=== PATIENT | female | born 1930 | race Caucasian/White ===

== ENCOUNTER 2021-06-06 10:18 | Inpatient (IN) ==
--- NOTE | 2021-06-06 11:11 | Emergency Department Note ---
Impression & Plan Ambulatory dysfunction, Fall, Elevated CK, Dementia ADMIT ED Provider Note HPI: The patient is an 89-year-old female with history of dementia, presents the emergency department after she was found down on the bathroom floor earlier this morning by family. Patient lives with her son, reportedly was in bed around 5 AM and then found on the ground around 8:30 AM. Patient has dementia and is unable to provide me with any useful history on arrival. She does ambulate her extremities spontaneously. She is hemodynamically stable on arrival without any obvious external evidence of trauma on my initial assessment. ROS: -General: Found down *10 point review systems was conducted and is otherwise negative unless stated above *Outpatient medications and allergy history reviewed PE: General: Frail appearing, disheveled appearing, no acute distress, alert HEENT: Normocephalic, atraumatic Eyes: Extraocular eye movement is intact, no scleral erythema Pulmonary: Clear to auscultation bilaterally, no wheezing Cardio: Regular rate and rhythm GI: Abdomen is soft, nontender : No suprapubic tenderness MSK: No evidence of trauma or malformation of the extremities, no edema, patient does ambulate extremities spontaneously Skin: No evidence of rash Neuro: Alert, no focal deficits Psychiatric: Aggressive, confused at baseline with dementia Medical Decision Making: Patient presented to the emergency department after being found down on the ground, shortly after arrival IV was established, lab work obtained, CT imaging of the head does not show any evidence of intracranial bleeding, chest x-ray does not show any obvious evidence of fracture or pneumothorax. X-ray imaging of the hips was questionable for a possible pelvic ring fracture, CT imaging of the hips/pelvis was obtained that does not show any evidence of acute fracture, does show evidence of previous fractures. CK level is mildly elevated, no critical electrolyte abnormalities are noted. Patient was ordered a bolus of IV fluid. The patient is frail-appearing, she is 89 years old, she has dementia, the patient's daughter who is the POA tells me that things have not been going well at home recently as she has been having increasing ambulatory dysfunction and weakness. She no longer appears to be stable for management at home where she does live with her son who is currently not here at the bedside. Patient's daughter states that she believes at this point the patient needs placed in a nursing facility which I am in agreement with. I discussed with case management, secondary to the patient's insurance product it would be difficult to place her in a nursing facility directly from the ED, therefore case was discussed with the hospitalist service for [facility] and the patient was admitted in stable condition for further care and arrangement of placement. Diagnosis: 1. Dementia 2. Ambulatory dysfunction 3. Fall 4. Elevated CK level Disposition: Admission Tavo Jones DO Emergency Medicine Past Med/Surg History Social History Smoking Status: Unknown if ever smoked Allergies Allergies Allergy/AdvReac Type Severity Reaction Status Date / Time No Known Allergies Allergy Unknown Verified 06/06/21 13:39 Home Meds Home Medications Medication Instructions Recorded Confirmed aspirin 325 mg tablet 325 mg PO DAILY 06/06/21 06/06/21 calcium carbonate 500 mg-vitamin 1 tab PO DAILY 06/06/21 06/06/21 D3 15 mcg (600 unit) tablet (Os-Soto 500 + D3) donepezil 23 mg tablet 23 mg PO HS 06/06/21 06/06/21 dorzolamide 22.3 mg-timolol 6.8 1 drp OPB HS 06/06/21 06/06/21 mg/mL eye drops hydrochlorothiazide 12.5 mg tablet 12.5 mg PO UD 06/06/21 06/06/21 ibandronate 150 mg tablet 150 mg PO HS 06/06/21 06/06/21 lisinopril 10 mg tablet 10 mg PO DAILY 06/06/21 06/06/21 memantine 10 mg tablet 10 mg PO DAILY 06/06/21 06/06/21 simvastatin 20 mg tablet 20 mg PO DAILY 06/06/21 06/06/21 Results & Data (ED) Vital Signs Vital Signs - 24 hr 06/06/21 10:31 06/06/21 10:57 06/06/21 12:03 Temperature 37.0 C Temperature Source Oral Oral Pulse Rate 71 Pulse Rate [Right Finger] Respiratory Rate 20 Respiratory Effort / Characteristics Non-Labored Respiratory Depth Normal Respiratory Pattern Blood Pressure 142/62 H Blood Pressure [Left Arm] Blood Pressure Mean 88 Blood Pressure Mean [Left Arm] Blood Pressure Position Sitting Blood Pressure Position [Left Arm] Pulse Oximetry 96 Oxygen Delivery Method Room Air Room Air Sepsis Recent Fever Within 48 Hours No Sepsis New/Unexplained Change in Mental Status No Sepsis Action Taken by Nursing No Action Required 06/06/21 13:01 06/06/21 15:00 Temperature Temperature Source Pulse Rate Pulse Rate [Right Finger] 71 74 Respiratory Rate 18 20 Respiratory Effort / Characteristics Non-Labored Non-Labored Respiratory Depth Normal Normal Respiratory Pattern Regular Regular Blood Pressure Blood Pressure [Left Arm] 109/50 L 134/65 Blood Pressure Mean Blood Pressure Mean [Left Arm] 69 88 Blood Pressure Position Blood Pressure Position [Left Arm] Sitting Pulse Oximetry 97 96 Oxygen Delivery Method Room Air Room Air Sepsis Recent Fever Within 48 Hours Sepsis New/Unexplained Change in Mental Status Sepsis Action Taken by Nursing Laboratory Data Result diagrams: 06/06/21 12:13 06/06/21 12:13 Lab Results 06/06/21 06/06/21 06/06/21 Range/Units 12:13 12:13 12:13 WBC 9.44 (4.8-10.8) K/uL RBC 4.77 (4.2-5.4) M/uL Hgb 14.2 (12.0-16.0) g/dL Hct 42.5 (37-47) % MCV 89.1 (80-100) fL MCH 29.8 (25-34) pg MCHC 33.4 (32-36) g/dL RDW Std Deviation 47.1 H (36.4-46.3) fL RDW Coeff of Miguelito 14.5 (11.5-14.5) % Plt Count 220 (130-400) K/uL MPV 11.5 H (7.4-10.4) fL Immature Gran % (Auto) 0.2 % Neut % (Auto) 83.7 % Lymph % (Auto) 10.0 % [place] % (Auto) 5.5 % Eos % (Auto) 0.5 % Baso % (Auto) 0.1 % Neut # (Auto) 7.90 H (1.4-6.5) K/uL Lymph # (Auto) 0.94 L (1.2-3.4) K/uL [place] # (Auto) 0.52 (0.11-0.59) K/uL Eos # (Auto) 0.05 (0-0.5) K/uL Baso # (Auto) 0.01 (0-0.2) K/uL Immature Gran # (Auto) 0.02 (0.00-0.02) K/uL PT 10.8 (9.0-12.0) Seconds INR 1.0 (0.9-1.1) Sodium 141 (136-145) mmol/L Potassium 3.9 (3.5-5.1) mmol/L Chloride 110 H (98-107) mmol/L Carbon Dioxide 26 (21-32) mmol/L Anion Gap 5 (3-11) BUN 25 H (6-23) mg/dl Creatinine 0.99 (0.6-1.2) mg/dl Est Cr Clr Drug Dosing Not Reportable Est GFR ( Amer) 59.0 ml/min Est GFR (Non-Af Amer) 50.9 ml/min BUN/Creatinine Ratio 25.3 H (10-20) Glucose 95 (70-99(Fasting)) mg/dl Calcium 9.3 (8.5-10.1) mg/dl Total Bilirubin 0.6 (0.2-1.0) mg/dl AST 14 (13-39) U/L ALT 8 (7-52) U/L Alkaline Phosphatase 110 H (34-104) U/L Total Creatine Kinase 265 H (26-192) U/L Total Protein 6.1 (6.0-8.3) gm/dl Albumin 3.6 (3.4-5.0) gm/dl Globulin 2.5 (2.5-4.0) gm/dl Albumin/Globulin Ratio 1.4 (0.9-2) Administered Medications Discontinued Medications Sodium Chloride (Nss) 500 mls @ 999 mls/hr IV .Q31M MARIANNE Stop: 06/06/21 11:45 Last Infusion: 06/06/21 12:53 Dose: 0 mls/hr Documented by: [id number] Admin: 06/06/21 11:35 Dose: 999 mls/hr Documented by: [id number] Imaging Data Radiologist's Impression: Head CT 06/06/21 11:09 CT head/brain wo con CLINICAL HISTORY: Trauma/fall Technique: Contiguous axial CT images of the head were acquired from the base of the skull to the vertex without intravenous contrast administration. Images were viewed in brain, subdural and bone windows. Automated dose lowering techniques and/or adjustment according to patient size were utilized for this exam. Comparison: None available at the time of this dictation. Findings: Exam is limited by patient motion and positioning. The ventricles, basal cisterns, and cerebral sulci are normal. There is no acute intracranial hemorrhage or evidence of acute territorial infarction. Neither mass effect, shift of the midline structures, nor abnormal extra-axial fluid collections are shown. Imaged portions of the paranasal sinuses and mastoid air cells are clear. The orbits appear normal. There are no acute fractures of the calvaria or scalp swelling. Impression: No acute intracranial hemorrhage, skull fractures, or scalp swelling within the limitations of this exam. ACT 112: Negative or not required by law. Electronically signed by: Andrea Luis M.D. 06/06/2021 2:58 PM Chest X-Ray 06/06/21 11:10 SINGLE VIEW CHEST CLINICAL HISTORY: Fall. FINDINGS: An AP, portable, upright chest radiograph is obtained. No prior studies are available for comparison at the time of dictation. The examination is severely degraded by portable technique and patient rotation. The cardiomediastinal silhouette is not well assessed due to patient rotation. Nonspecific interstitial thickening is likely chronic. Bibasilar opacities likely represent scarring/atelectasis. No airspace consolidation or large pleural effusion is clearly identified. No pneumothorax is seen. The skeletal structures are osteopenic. The bony thorax is grossly intact. Degenerative change and scoliosis is noted in the thoracic spine. Arthritic change is seen in the shoulders. IMPRESSION: No acute abnormality is identified noting a significantly degraded examination. This degrades diagnostic utility, and a repeat PA and lateral examination is recommended when the patient is clinically able. ACT 112: Negative or not required by law. Electronically signed by: Stefano Rubio M.D. 06/06/2021 1:46 PM Hip/Pelvis X-Ray 06/06/21 11:10 XR hip MORGAN 2v w pelvis CLINICAL HISTORY: fall COMPARISON STUDY: Pelvis radiograph January 25, 2012. FINDINGS: No acute proximal femoral fracture is present. Old healed left pubic ring fractures are noted. There is lucency with subtle cortical irregularity of the right inferior pubic ramus. Sacroiliac joints are intact. Symphysis pubis is intact. IMPRESSION: 1. No acute proximal femoral fracture identified. 2. Lucency with subtle cortical irregularity of the right inferior pubic ramus. A mildly displaced fracture cannot be excluded. 3. Old, healed left pubic ring fractures. ACT 112: Negative or not required by law. Electronically signed by: Gee Vincent M.D. 06/06/2021 1:[address] 06/06/21 14:04 CT SCAN OF THE PELVIS WITHOUT IV CONTRAST CLINICAL HISTORY: Fall. Low back pain. COMPARISON STUDY: Radiographs of the hips and pelvis dated 06/06/2021. A dose lowering technique was utilized adhering to the principles of ALARA. TECHNIQUE: CT scan of the pelvis is performed from the pelvic inlet to the proximal femora. Images are reviewed in the axial, sagittal, and coronal planes. IV contrast was not administered for this examination. FINDINGS: The skeletal structures are osteopenic. There is no evidence of acute fracture involving the hips or bony pelvis. There are chronic/healed left pubic ring fractures. Degenerative change and joint space narrowing is seen in the hips. Lumbosacral spondylosis is partially visualized. Sclerotic change is noted in the sacroiliac joints and pubic symphysis. No lytic or blastic lesion is seen. There is generalized atrophy of the regional musculature. No hematoma is identified. The bladder is distended. The uterus is atrophic versus surgically absent. There is advanced diverticulosis of the visualized colon without CT evidence of acute diverticulitis. Trace nonspecific free fluid is seen in the cul-de-sac. No pelvic sidewall or inguinal adenopathy is identified. Minimal soft tissue contusion is suggested posterior to the right greater trochanter. IMPRESSION: 1. No acute fracture is identified. 2. There are healed left pubic ring fractures. 3. Marked bladder distention. 4. Trace free fluid in the pelvis is a nonspecific but abnormal finding. 5. Advanced diverticulosis of the imaged colon without CT evidence of acute diverticulitis. ACT 112: Negative or not required by law. Dictated: 06/06/2021 2:53 PM Transcribed: 06/06/2021 3:05 PM Janey [id number] [email or web address] Electronically signed by: Stefano Rubio M.D. 06/06/2021 3:07 PM Discharge Plan Visit Data Chief Complaint: Fall ED Provider: Tavo Jones Discharge Problem: Ambulatory dysfunction, Fall, Elevated CK, Dementia Forms Stand Alone Forms: My [facility] [address] Prescriptions Prescriptions: No Action aspirin 325 mg Tablet 325 mg PO DAILY RF: 0 simvastatin 20 mg tablet 20 mg PO DAILY RF: 0 lisinopril 10 mg tablet 10 mg PO DAILY RF: 0 dorzolamide-timolol 22.3-6.8 mg/mL drops 1 drp OPB HS RF: 0 memantine 10 mg tablet 10 mg PO DAILY RF: 0 ibandronate 150 mg tablet 150 mg PO HS RF: 0 hydrochlorothiazide 12.5 mg tablet 12.5 mg PO UD RF: 0 donepezil 23 mg tablet 23 mg PO HS RF: 0 calcium carbonate-vitamin D3 [Os-Soto 500 + D3] 500 mg-15 mcg (600 unit) Tablet 1 tab PO DAILY RF: 0 Referrals Referrals: Lizeth Bains [Primary Care Provider] - Discharge Problem: Fall Qualifiers: Encounter type: initial encounter Qualified Code(s): W19.XXXA - Unspecified fall, initial encounter Dementia Qualifiers: Dementia type: unspecified type Dementia behavioral disturbance: without behavioral disturbance Qualified Code(s): F03.90 - Unspecified dementia without behavioral disturbance
[2021-06-06] MEDS ORDERED: SODIUM CHLORIDE 0.9% 500 ML IV SCH (11:15)
[2021-06-06 12:47] LABS: Basophils # (auto) 0.01 K/uL (0-0.2); Basophils % (auto) 0.1 %; Eosinophils # (auto) 0.05 K/uL (0-0.5); Eosinophils % (auto) 0.5 %; Hematocrit (blood only) 42.5 % (37-47); Hemoglobin 14.2 g/dL (12.0-16.0); Immature Granulocytes # (auto) 0.02 K/uL (0.00-0.02); Immature Granulocytes % (auto) 0.2 %; Lymphocytes # (auto) 0.94 K/uL (1.2-3.4); Mean Corpuscular Hemoglobin 29.8 pg (25-34); Mean Corpuscular Hgb Conc 33.4 g/dL (32-36); Mean Corpuscular Volume 89.1 fL (80-100); Mean Platelet Volume 11.5 fL (7.4-10.4); Monocytes # (auto) 0.52 K/uL (0.11-0.59); Monocytes % (auto) 5.5 %; Neutrophils % (auto) 83.7 %; Platelet Count 220 K/uL (130-400); RDW Coefficient of Variation 14.5 % (11.5-14.5); RDW Standard Deviation 47.1 fL (36.4-46.3); Red Blood Count 4.77 M/uL (4.2-5.4); White Blood Count 9.44 K/uL (4.8-10.8)
[2021-06-06 12:58] LABS: Prothrombin Time 10.8 Seconds (9.0-12.0)
[2021-06-06 13:21] LABS: Alanine Aminotransferase 8 U/L (7-52); Albumin Globulin Ratio 1.4 (0.9-2); Albumin Level 3.6 gm/dl (3.4-5.0); Alkaline Phosphatase 110 U/L (34-104); Anion Gap 5 (3-11); Aspartate Aminotransferase 14 U/L (13-39); BUN Creatinine Ratio 25.3 (10-20); Bilirubin,Total 0.6 mg/dl (0.2-1.0); Blood Urea Nitrogen 25 mg/dl (6-23); Calcium 9.3 mg/dl (8.5-10.1); Carbon Dioxide 26 mmol/L (21-32); Chloride 110 mmol/L (98-107); Creatine Kinase 265 U/L (26-192); Est GFR (Non-African American) 50.9 ml/min; Globulin 2.5 gm/dl (2.5-4.0); Glucose 95 mg/dl (70-99(Fasting)); Potassium 3.9 mmol/L (3.5-5.1); Sodium 141 mmol/L (136-145); Total Protein 6.1 gm/dl (6.0-8.3)
--- NOTE | 2021-06-06 13:48 | XRay Report ---
SINGLE VIEW CHEST CLINICAL HISTORY: Fall. FINDINGS: An AP, portable, upright chest radiograph is obtained. No prior studies are available for c omparison at the time of dictation. The examination is severely degraded by portable technique and pa tient rotation. The cardiomediastinal silhouette is not well assessed due to patient rotation. Nonsp ecific interstitial thickening is likely chronic. Bibasilar opacities likely represent scarring/atele ctasis. No airspace consolidation or large pleural effusion is clearly identified. No pneumothorax is seen. The skeletal structures are osteopenic. The bony thorax is grossly intact. Degenerative change and scoliosis is noted in the thoracic spine. Arthritic change is seen in the shoulders. IMPRESSION: No acute abnormality is identified noting a significantly degraded examination. This degr ades diagnostic utility, and a repeat PA and lateral examination is recommended when the patient is c linically able. ACT 112: Negative or not required by law. Electronically signed by: Stefano Rubio M.D. 06/06/2021 1:46 PM
--- NOTE | 2021-06-06 13:57 | XRay Report ---
XR hip MORGAN 2v w pelvis CLINICAL HISTORY: fall COMPARISON STUDY: Pelvis radiograph January 25, 2012. FINDINGS: No acute proximal femoral fracture is present. Old healed left pubic ring fractures are not ed. There is lucency with subtle cortical irregularity of the right inferior pubic ramus. Sacroiliac joints are intact. Symphysis pubis is intact. IMPRESSION: 1. No acute proximal femoral fracture identified. 2. Lucency with subtle cortical irregularity of the right inferior pubic ramus. A mildly displaced fr acture cannot be excluded. 3. Old, healed left pubic ring fractures. ACT 112: Negative or not required by law. Electronically signed by: Gee Vincent M.D. 06/06/2021 1:56 PM
--- NOTE | 2021-06-06 14:59 | CT Scan Report ---
CT head/brain wo con CLINICAL HISTORY: Trauma/fall Technique: Contiguous axial CT images of the head were acquired from the base of the skull to the manda brent without intravenous contrast administration. Images were viewed in brain, subdural and bone windo ws. Automated dose lowering techniques and/or adjustment according to patient size were utilized for this exam. Comparison: None available at the time of this dictation. Findings: Exam is limited by patient motion and positioning. The ventricles, basal cisterns, and cerebral sulci are normal. There is no acute intracranial hemorrhage or evidence of acute territorial infarction. N either mass effect, shift of the midline structures, nor abnormal extra-axial fluid collections are s hown. Imaged portions of the paranasal sinuses and mastoid air cells are clear. The orbits appear normal. There are no acute fractures of the calvaria or scalp swelling. Impression: No acute intracranial hemorrhage, skull fractures, or scalp swelling within the limitations of this e xam. ACT 112: Negative or not required by law. Electronically signed by: Andrea Luis M.D. 06/06/2021 2:58 PM
--- NOTE | 2021-06-06 15:09 | CT Scan Report ---
CT SCAN OF THE PELVIS WITHOUT IV CONTRAST CLINICAL HISTORY: Fall. Low back pain. COMPARISON STUDY: Radiographs of the hips and pelvis dated 06/06/2021. A dose lowering technique was ut ilized adhering to the principles of ALARA. TECHNIQUE: CT scan of the pelvis is performed from the pelvic inlet to the proximal femora. Images ar e reviewed in the axial, sagittal, and coronal planes. IV contrast was not administered for this exam ination. FINDINGS: The skeletal structures are osteopenic. There is no evidence of acute fracture involving th e hips or bony pelvis. There are chronic/healed left pubic ring fractures. Degenerative change and deidra int space narrowing is seen in the hips. Lumbosacral spondylosis is partially visualized. Sclerotic c hange is noted in the sacroiliac joints and pubic symphysis. No lytic or blastic lesion is seen. Ther e is generalized atrophy of the regional musculature. No hematoma is identified. The bladder is diste nded. The uterus is atrophic versus surgically absent. There is advanced diverticulosis of the visual ized colon without CT evidence of acute diverticulitis. Trace nonspecific free fluid is seen in the c ul-de-sac. No pelvic sidewall or inguinal adenopathy is identified. Minimal soft tissue contusion is suggested posterior to the right greater trochanter. IMPRESSION: 1. No acute fracture is identified. 2. There are healed left pubic ring fractures. 3. Marked bladder distention. 4. Trace free fluid in the pelvis is a nonspecific but abnormal finding. 5. Advanced diverticulosis of the imaged colon without CT evidence of acute diverticulitis. ACT 112: Negative or not required by law. Dictated: 06/06/2021 2:53 PM Transcribed: 06/06/2021 3:05 PM Janey [id number] [email or web address] Electronically signed by: Stefano Rubio M.D. 06/06/2021 3:07 PM
--- NOTE | 2021-06-06 16:54 | History & Physical Report ---
Date of Service June 06, 2021 Assessment & Plan (1) Fall: (2) Ambulatory dysfunction: (3) Dementia: Plan: Admit to [facility] telemetry Patient presenting from home after an unwitnessed fall In the ED, head CT negative for acute findings, pelvis x-ray initially question possible pelvic fracture however CT scan will read out UA pending Given unwitnessed fall, check troponin and EKG PT/OT Case management consulted, patient likely will need placement. Daughter reque luke Paredes. (4) Elevated CK: Plan: Mild, total CK 265 Continue gentle IVF hydration Follow-up CK level in the morning (5) HTN (hypertension): Plan: Continue lisinopril, hold HCTZ while receiving IVF (6) DVT prophylaxis: Plan: SQ heparin History of Present Illness Chief Complaint: Fall Primary Care Provider: Lizeth Bains 89-year-old female with PMH HTN, dementia, osteoporosis, no problems to below who presents to the ED after an unwitnessed fall. Due to patient's advanced dementia, history is unobtainable from her. Patient's daughter is the bedside who provides some history. Daughter states that patient lives with her brother (patient's son). He checks in on her frequently throughout the night, when he last checked on her around 5 AM, patient remained in bed. Then around 8 AM, patient was found down in the bathroom floor. Patient cannot provide any history regarding this fall. Patient was brought to the ED for further evaluation. Patient's daughter notes a gradual decline in her mother's confusion over the past year or so. She feels it may have been worse over the past week. No other symptoms reported. In the ED, pelvis x-ray questioned a pelvic fracture however pelvis CT ruled out. Head CT and CXR negative for acute findings. Patient is hemodynamically stable. Labs show a mildly elevated total CK at 265, otherwise unremarkable. UA still pending. Patient received IVF. All ergies Allergy/AdvReac Type Severity Reaction Status Date / Time No Known Allergies Allergy Unknown Verified 06/06/21 13:39 Home Medications Medication Instructions Recorded Confirmed Type aspirin 325 mg tablet 325 mg PO DAILY 06/06/21 06/06/21 History calcium carbonate 500 mg-vitamin 1 tab PO DAILY 06/06/21 06/06/21 History D3 15 mcg (600 unit) tablet ([place] 500 + D3) donepezil 23 mg tablet 23 mg PO HS 06/06/21 06/06/21 History dorzolamide 22.3 mg-timolol 6.8 1 drp OPB HS 06/06/21 06/06/21 History mg/mL eye drops hydrochlorothiazide 12.5 mg tablet 12.5 mg PO UD 06/06/21 06/06/21 History ibandronate 150 mg tablet 150 mg PO HS 06/06/21 06/06/21 History lisinopril 10 mg tablet 10 mg PO DAILY 06/06/21 06/06/21 History memantine 10 mg tablet 10 mg PO DAILY 06/06/21 06/06/21 History simvastatin 20 mg tablet 20 mg PO DAILY 06/06/21 06/06/21 History Past Med/Surg History Medical History Dementia Dyslipidemia HTN (hypertension) Osteoporosis Surgical History History of partial hysterectomy Family History Other Family history unobtainable Social History (Updated 06/06/21 @ 16:50 by JUAN Camejo) Smoking Status: Never smoker Hx Alcohol Use: No Review of Systems Review of Systems: Unobtainable due to cognitive status Physical Exam Constitutional: WD/WN, vitals as above + ill appearing (Chronically); no acute distress Eyes: PERRL, conjunctivae normal, anicteric sclerae ENMT: Ears: no external ear abnormality Nose: no external nose abnormality Mouth: + poor dentition Respiratory: normal respiratory effort, lungs clear to auscultation Cardiovascular: Rate/Rhythm: regular rate and regular rhythm Vessels: normal peripheral pulses Extremities: no edema Gastrointestinal (Abdomen): normal bowel sounds, soft, nontender, no hepatosplenomegaly Musculoskeletal: Extremities: no cyanosis and no clubbing Difficult to assess strength as patient has difficulty following commands Skin: no rashes, warm and dry Neurologic: PERRL, EOMI, accommodation nl, no face palsy, no dysarthria Psychiatric: Orientation: alert and oriented to person; + not oriented to place and + not oriented to time Results & Data Results & Data ([place]) Vital Signs (Past 12 Hours) Vital Signs Temp Pulse Pulse Resp BP BP Pulse Ox 06/06/21 15:00 74 20 134/65 96 06/06/21 13:01 71 18 109/50 L 97 06/06/21 10:31 37.0 C 71 20 142/62 H 96 Laboratory Results Short CBC 06/06/21 Range/Units 12:13 WBC 9.44 (4.8-10.8) K/uL Hgb 14.2 (12.0-16.0) g/dL Hct 42.5 (37-47) % Plt Count 220 (130-400) K/uL BMP 06/06/21 12:13 Sodium 141 Potassium 3.9 Chloride 110 H Carbon Dioxide 26 BUN 25 H Creatinine 0.99 Glucose 95 Calcium 9.3 Cardiac Enzymes 06/06/21 Range/Units 12:13 Total Creatine Kinase 265 H (26-192) U/L Liver Function 06/06/21 Range/Units 12:13 Total Bilirubin 0.6 (0.2-1.0) mg/dl AST 14 (13-39) U/L ALT 8 (7-52) U/L Alkaline Phosphatase 110 H (34-104) U/L Albumin 3.6 (3.4-5.0) gm/dl Diagnostic Findings Head CT 06/06/21 11:09 CT head/brain wo con CLINICAL HISTORY: Trauma/fall Technique: Contiguous axial CT images of the head were acquired from the base of the skull to the vertex without intravenous contrast administration. Images were viewed in brain, subdural and bone windows. Automated dose lowering techniques and/or adjustment according to patient size were utilized for this exam. Comparison: None available at the time of this dictation. Findings: Exam is limited by patient motion and positioning. The ventricles, basal cisterns, and cerebral sulci are normal. There is no acute intracranial hemorrhage or evidence of acute territorial infarction. Neither mass effect, shift of the midline structures, nor abnormal extra-axial fluid collections are shown. Imaged portions of the paranasal sinuses and mastoid air cells are clear. The orbits appear normal. There are no acute fractures of the calvaria or scalp swelling. Impression: No acute intracranial hemorrhage, skull fractures, or scalp swelling within the limitations of this exam. ACT 112: Negative or not required by law. Electronically signed by: Andrea Luis M.D. 06/06/2021 2:58 PM Chest X-Ray 06/06/21 11:10 SINGLE VIEW CHEST CLINICAL HISTORY: Fall. FINDINGS: An AP, portable, upright chest radiograph is obtained. No prior studies are available for comparison at the time of dictation. The examination is severely degraded by portable technique and patient rotation. The cardiomediastinal silhouette is not well assessed due to patient rotation. Nonspecific interstitial thickening is likely chronic. Bibasilar opacities likely represent scarring/atelectasis. No airspace consolidation or large pleural effusion is clearly identified. No pneumothorax is seen. The skeletal structures are osteopenic. The bony thorax is grossly intact. Degenerative change and scoliosis is noted in the thoracic spine. Arthritic change is seen in the shoulders. IMPRESSION: No acute abnormality is identified noting a significantly degraded examination. This degrades diagnostic utility, and a repeat PA and lateral examination is recommended when the patient is clinically able. ACT 112: Negative or not required by law. Electronically signed by: Stefano Rubio M.D. 06/06/2021 1:46 PM Hip/Pelvis X-Ray 06/06/21 11:10 XR hip MORGAN 2v w pelvis CLINICAL HISTORY: fall COMPARISON STUDY: Pelvis radiograph January 25, 2012. FINDINGS: No acute proximal femoral fracture is present. Old healed left pubic ring fractures are noted. There is lucency with subtle cortical irregularity of the right inferior pubic ramus. Sacroiliac joints are intact. Symphysis pubis is intact. IMPRESSION: 1. No acute proximal femoral fracture identified. 2. Lucency with subtle cortical irregularity of the right inferior pubic ramus. A mildly displaced fracture cannot be excluded. 3. Old, healed left pubic ring fractures. ACT 112: Negative or not required by law. Electronically signed by: Gee Vincent M.D. 06/06/2021 1:[address] 06/06/21 14:04 CT SCAN OF THE PELVIS WITHOUT IV CONTRAST CLINICAL HISTORY: Fall. Low back pain. COMPARISON STUDY: Radiographs of the hips and pelvis dated 06/06/2021. A dose lowering technique was utilized adhering to the principles of ALARA. TECHNIQUE: CT scan of the pelvis is performed from the pelvic inlet to the proximal femora. Images are reviewed in the axial, sagittal, and coronal planes. IV contrast was not administered for this examination. FINDINGS: The skeletal structures are osteopenic. There is no evidence of acute fracture involving the hips or bony pelvis. There are chronic/healed left pubic ring fractures. Degenerative change and joint space narrowing is seen in the hips. Lumbosacral spondylosis is partially visualized. Sclerotic change is noted in the sacroiliac joints and pubic symphysis. No lytic or blastic lesion is seen. There is generalized atrophy of the regional musculature. No hematoma is identified. The bladder is distended. The uterus is atrophic versus surgically absent. There is advanced diverticulosis of the visualized colon without CT evidence of acute diverticulitis. Trace nonspecific free fluid is seen in the cul-de-sac. No pelvic sidewall or inguinal adenopathy is identified. Minimal soft tissue contusion is suggested posterior to the right greater trochanter. IMPRESSION: 1. No acute fracture is identified. 2. There are healed left pubic ring fractures. 3. Marked bladder distention. 4. Trace free fluid in the pelvis is a nonspecific but abnormal finding. 5. Advanced diverticulosis of the imaged colon without CT evidence of acute diverticulitis. ACT 112: Negative or not required by law. Dictated: 06/06/2021 2:53 PM Transcribed: 06/06/2021 3:05 PM Janey [id number] [email or web address] Electronically signed by: Stefano Rubio M.D. 06/06/2021 3:07 PM Code Status & VTE Plan Code Status Patient is a DNR as per my discussion with patient's daughter, Rachana, who is the bedside. VTE Prophylaxis Plan VTE Prophylaxis will be ordered: Yes Supervising Physician Co-Signing Physician Notes This is an attending cosign note for full reports and documentation please see the full dictation by JON following is a synopsis. Patient presenting after fall at home. No detailed history could be obtained as patient has significant dementia. Patient evaluate by the ER staff and we are called admit the patient for placement purposes. There was initial concern of possible pelvic fracture however CAT scan is negative for such. Otherwise head atraumatic chest largely clear abdomen soft nontender. Rate and rhythm. Obtain troponin EKG telemetry monitoring. Physical therapy evaluation. Case management evaluation. (1) Dementia Dementia behavioral disturbance: without behavioral disturbance Dementia type: unspecified type Qualified Code(s): F03.90 - Unspecified dementia without behavioral disturbance (2) Fall Encounter type: initial encounter Qualified Code(s): W19.XXXA - Unspecified fall, initial encounter
[2021-06-06 17:50] LABS: Appearance Urine Clear (Clear); Bilirubin Urine Negative (Negative); Blood Urine Negative (Negative); Color Urine Dark Yellow; Glucose Urine UA Negative (Negative); Ketones Urine Trace (Negative); Leukocyte Esterase Urine Negative (Negative); Nitrite Urine Negative (Negative); Protein Urine Negative (Negative); Specific Gravity Urine 1.026 (1.000-1.030); Urobilinogen Urine Negative (Negative)
[2021-06-06] MEDS ORDERED: SODIUM CHLORIDE 0.9% 1000ML 1,000 ML IV SCH (19:00)
[2021-06-06] MEDS ORDERED: ACETAMINOPHEN 325 MG TAB PO PRN (19:00)
[2021-06-06] MEDS ORDERED: HALOPERIDOL LACTATE 5 MG/ML 1 ML VIAL IM STA (19:47)
[2021-06-06] MEDS: DORZOLAMIDE/TIMOLOL 22.3/6.8MG/ML 10 ML BTL OPB SCH (20:34)
[2021-06-06] MEDS: HEPARIN SOD 5,000 UNIT/0.5 ML VIAL SQ SCH (20:35)
[2021-06-06] MEDS ORDERED: NON-FORMULARY MEDICATION (Ibandronate 150 mg tablet) PO SCH (21:00)
--- NOTE | 2021-06-07 08:17 | Electrocardiogram Report ---
Test Reason : Blood Pressure : / mmHG Vent. Rate : 087 BPM Atrial Rate : 087 BPM P-R Int : 172 ms QRS Dur : 090 ms QT Int : 406 ms P-R-T Axes : 052 -41 012 degrees QTc Int : 488 ms Poor data quality, interpretation may be adversely affected Normal sinus rhythm Left anterior fascicular block Minimal voltage criteria for LVH, may be normal variant Abnormal ECG When compared with ECG of 28-NOV-2004 00:34, No significant change Confirmed by Marvel Massey ([id number]) on 06/07/2021 8:17:42 AM Referred By: REFERRED SELF Confirmed By:Marvel Massey
--- NOTE | 2021-06-07 08:18 | Electrocardiogram Report ---
Test Reason : Blood Pressure : / mmHG Vent. Rate : 085 BPM Atrial Rate : 085 BPM P-R Int : 168 ms QRS Dur : 104 ms QT Int : 418 ms P-R-T Axes : 053 -38 033 degrees QTc Int : 497 ms Poor data quality, interpretation may be adversely affected Normal sinus rhythm Left anterior fascicular block Minimal voltage criteria for LVH, may be normal variant Prolonged QT Abnormal ECG When compared with ECG of 06-JUN-2021 21:32, No significant change was found Confirmed by Marvel Massey ([id number]) on 06/07/2021 8:18:00 AM Referred By: REFERRED SELF Confirmed By:Marvel Massey
[2021-06-07 08:24] LABS: Hematocrit (blood only) 40.8 % (37-47); Hemoglobin 13.4 g/dL (12.0-16.0); Mean Corpuscular Hemoglobin 29.7 pg (25-34); Mean Corpuscular Hgb Conc 32.8 g/dL (32-36); Mean Corpuscular Volume 90.5 fL (80-100); Mean Platelet Volume 11.5 fL (7.4-10.4); Platelet Count 193 K/uL (130-400); RDW Coefficient of Variation 14.7 % (11.5-14.5); RDW Standard Deviation 48.8 fL (36.4-46.3); Red Blood Count 4.51 M/uL (4.2-5.4); White Blood Count 5.82 K/uL (4.8-10.8)
[2021-06-07 08:40] LABS: BUN Creatinine Ratio 27.6 (10-20); Calcium 8.7 mg/dl (8.5-10.1); Creatinine Clr Calc Pharmacy 35.4 ml/min; Est GFR (African American) 68.9 ml/min; Est GFR (Non-African American) 59.5 ml/min; Potassium 3.9 mmol/L (3.5-5.1)
[2021-06-07] MEDS: ASPIRIN 325 MG ECTAB PO SCH (08:50)
[2021-06-07] MEDS: SIMVASTATIN 20 MG TAB PO SCH (08:51)
[2021-06-07] MEDS: lisinopril 10 MG TAB PO SCH (08:51)
[2021-06-07] MEDS: HEPARIN SOD 5,000 UNIT/0.5 ML VIAL SQ SCH ×2 (08:51→22:14)
[2021-06-07] MEDS: MEMANTINE HCL 10 MG TAB PO SCH (08:51)
--- NOTE | 2021-06-07 15:34 | Hospitalist Progress Note ---
Date of Service June 07, 2021 Assessment & Plan (1) Fall: Plan: unwitnessed fall, no apparent fracture or sequelae other than mildly elevated CK. She had one bag of IVF overnight. Will give one additional bag now and trend CK in am. (2) Ambulatory dysfunction: Plan: Likely related to recent fall. PT/OT for placement. (3) Dementia: Plan: Admit to [facility] telemetry Patient presenting from home after an unwitnessed fall In the ED, head CT negative for acute findings, pelvis x-ray initially question possible pelvic fracture however CT scan will read out UA negative PT/OT Case management consulted, patient likely will need placement. Daughter requesting Karis Paredes. (4) HTN (hypertension): Plan: HTN chronic, stable. Continue lisinopril, hold HCTZ while receiving IVF (5) DVT prophylaxis: Plan: SQ heparin DNR/DNI Dispo-cont hospital stay pending solidification of placement. Lizette oMncada DO [facility] Hospitalist Admission and Anticipated Discharge Date Admission Date: June 06, 2021 Subjective 89 yo F who lives at home with her son who was found down in the bathroom awake. She had an unwitnessed fall sometime overnight. Dementia at baseline and she is unable to give a history. Daughter is at bedside and helps with this. States mom looks better today States she ambulates independently at baseline, however, mom cannot ambulate without assist here Nurse informs me that patient is also needing assistance with feeding. Pt denies any pain All labs and imaging studies reviewed with daughter. Review of Systems Review of Systems: All systems were reviewed and negative except as indicated above. Physical Exam Physical Exam: CONSTITUTIONAL: WNWD, vitals as above, generally appears fatigued, NAD EYES: normal conjunctivae, no scleral icterus ENT: external ear and nose normal, MMM NECK: trachea midline, RESPIRATORY: clear to auscultation bilaterally, no crackles, rales or wheezes, normal respiratory effort CARDIOVASCULAR: regular rate and rhythm, S1 and 2 heard without murmurs, gallops or rubs, no JVD, no peripheral edema, CHEST: inspection of chest was normal GASTROINTESTINAL: soft, nontender, ND, no guarding MUSCULOSKELETAL: strength 5/5 throughout, head is normocephalic and atraumatic SKIN: warm and dry, NEUROLOGIC: CN 2-12 grossly intact, no sensory deficit, normal cognition, normal speech, no tremor PSYCHIATRIC: alert cooperative and oriented to person, place and time. Results & Data Results & Data ([facility]) Vital Signs (Past 12 Hours) Vital Signs Temp Pulse Pulse Resp BP Pulse Ox 06/07/21 15:31 85 06/07/21 15:26 36.3 C L 85 18 141/66 H 96 06/07/21 11:26 36.6 C 73 18 135/77 96 06/07/21 07:48 69 06/07/21 07:38 36.7 C 83 18 125/69 94 Laboratory Results Short CBC 06/07/21 Range/Units 07:58 WBC 5.82 (4.8-10.8) K/uL Hgb 13.4 (12.0-16.0) g/dL Hct 40.8 (37-47) % Plt Count 193 (130-400) K/uL BMP 06/07/21 07:58 Sodium 143 Potassium 3.9 Chloride 115 H Carbon Dioxide 20 L BUN 24 H Creatinine 0.87 Glucose 96 Calcium 8.7 Cardiac Enzymes 06/06/21 06/07/21 Range/Units 12:13 07:58 Total Creatine Kinase 398 H (26-192) U/L Troponin I < 0.03 (0-0.04) ng/ml Urine 06/06/21 Range/Units 17:10 Urine Color Dark Yellow Urine Appearance Clear (Clear) Urine pH 6.0 (4.5-7.5) Ur Specific [place] 1.026 (1.000-1.030) Urine Protein Negative (Negative) Urine Glucose (UA) Negative (Negative) Medications Administered Current Inpatient Medications Acetaminophen (Acetaminophen 325 Mg Tab) 650 mg PO Q4H PRN PRN Reason: pain/fever Stop: 07/06/21 18:59 Aspirin (Aspirin 325 Mg Ectab) 325 mg PO DAILY MARIANNE Stop: 07/07/21 08:59 Last Admin: 06/07/21 08:50 Dose: 325 mg Documented by: Dorzolamide/Timolol (Dorzolamide/Timolol 22.3/6.8mg/Ml 10 Ml Btl) 1 drops OPB HS MARIANNE Stop: 07/06/21 20:59 Last Admin: 06/06/21 20:34 Dose: 1 drops Documented by: Heparin Sodium (Porcine) (Heparin Sod 5,000 Unit/0.5 Ml Vial) 5,000 units SQ Q12 MARIANNE Stop: 07/06/21 20:59 Last Admin: 06/07/21 08:51 Dose: 5,000 units Documented by: Lisinopril (Lisinopril 10 Mg Tab) 10 mg PO DAILY MARIANNE Stop: 07/07/21 08:59 Last Admin: 06/07/21 08:51 Dose: 10 mg Documented by: Memantine (Memantine Hcl 10 Mg Tab) 10 mg PO DAILY MARIANNE Stop: 07/07/21 08:59 Last Admin: 06/07/21 08:51 Dose: 10 mg Documented by: Miscellaneous (Order Awaiting Action [Donepezil 23 Mg Tablet]) 1 ea N/A QS MARIANNE Stop: 07/07/21 00:00 Last Admin: 06/07/21 08:50 Dose: Not Given Documented by: Simvastatin (Simvastatin 20 Mg Tab) 20 mg PO DAILY MARIANNE Stop: 07/07/21 08:59 Last Admin: 06/07/21 08:51 Dose: 20 mg Documented by: (1) Dementia Dementia behavioral disturbance: without behavioral disturbance Dementia type: unspecified type Qualified Code(s): F03.90 - Unspecified dementia without behavioral disturbance (2) Fall Encounter type: initial encounter Qualified Code(s): W19.XXXA - Unspecified fall, initial encounter
[2021-06-07] MEDS ORDERED: SODIUM CHLORIDE 0.9% 1000ML 1,000 ML IV SCH (18:15)
[2021-06-07] MEDS: DORZOLAMIDE/TIMOLOL 22.3/6.8MG/ML 10 ML BTL OPB SCH (22:14)
[2021-06-08] MEDS: MEMANTINE HCL 10 MG TAB PO SCH (08:21)
[2021-06-08] MEDS: SIMVASTATIN 20 MG TAB PO SCH (08:21)
[2021-06-08] MEDS: ASPIRIN 325 MG ECTAB PO SCH (08:22)
[2021-06-08] MEDS: HEPARIN SOD 5,000 UNIT/0.5 ML VIAL SQ SCH ×2 (08:23→21:06)
[2021-06-08 08:43] LABS: Hematocrit (blood only) 40.8 % (37-47); Hemoglobin 12.9 g/dL (12.0-16.0); Mean Corpuscular Hemoglobin 29.2 pg (25-34); Mean Corpuscular Hgb Conc 31.6 g/dL (32-36); Mean Corpuscular Volume 92.3 fL (80-100); Mean Platelet Volume 11.6 fL (7.4-10.4); Platelet Count 208 K/uL (130-400); RDW Coefficient of Variation 14.9 % (11.5-14.5); RDW Standard Deviation 50.8 fL (36.4-46.3); Red Blood Count 4.42 M/uL (4.2-5.4); White Blood Count 4.13 K/uL (4.8-10.8)
[2021-06-08 09:41] LABS: BUN Creatinine Ratio 23.3 (10-20); Calcium 8.8 mg/dl (8.5-10.1); Creatinine Clr Calc Pharmacy 34.2 ml/min; Est GFR (African American) 66.2 ml/min; Est GFR (Non-African American) 57.1 ml/min; Potassium 4.7 mmol/L (3.5-5.1)
[2021-06-08] MEDS: lisinopril 10 MG TAB PO SCH (10:12)
--- NOTE | 2021-06-08 18:17 | Hospitalist Progress Note ---
Date of Service June 08, 2021 Assessment & Plan (1) Fall: Plan: unwitnessed fall, no apparent fracture or sequelae other than mildly elevated CK. (2) Ambulatory dysfunction: Plan: Likely related to recent fall. PT/OT for placement. (3) Dementia: Plan: #. Progressive Dementia with falls and safety/self-care concerned requiring admission for custodial placement [facility] Patient presenting from home after an unwitnessed fall In the ED, head CT negative for acute findings, pelvis x-ray initially question possible pelvic fracture however CT scan will read out UA negative PT/OT Case management consulted, patient likely will need placement. Daughter requesting Karis Paredes. (4) HTN (hypertension): Plan: HTN chronic, stable. Continue lisinopril, hold HCTZ while receiving IVF (5) DVT prophylaxis: Plan: SQ heparin DNR/DNI Dispo-cont hospital stay pending solidification of placement. Admission and Anticipated Discharge Date Admission Date: June 07, 2021 Subjective Patient seen and examined at bedside as a follow-up of fall and progressive dementia. Patient lying in bed, on room air, mumbling, confused, ROS n/a due to cognition status. Physical Exam Physical Exam: GENERAL: confused, unable to cooperate, on RA, NAD. Ill appearing. HEENT: No pallor, no icterus. Pupils equal, round and reactive to light. Oral mucosa moist. NECK: No JVD, no neck masses. HEART: S1 and S2 heard. Regular rate and rhythm. + systolic murmur over aortic area, no gallop. RESPIRATORY SYSTEM: Normal AP diameter. No accessory muscle use. No wheezing, no crackles. ABDOMEN: Soft, bowel sounds present, nontender, no distention. CENTRAL NERVOUS SYSTEM: No facial droop. Rest n/a EXTREMITIES: No edema, no erythema seen. Results & Data Results & Data ([facility]) Vital Signs (Past 12 Hours) Vital Signs Temp Pulse Pulse Resp BP Pulse Ox 06/08/21 15:26 72 06/08/21 15:18 36.5 C 64 18 156/78 H 96 06/08/21 10:52 36.8 C 82 20 171/77 H 95 06/08/21 08:07 54 L 06/08/21 07:29 84 22 177/70 H 96 (1) Fall Encounter type: initial encounter Qualified Code(s): W19.XXXA - Unspecified fall, initial encounter (2) Dementia Dementia behavioral disturbance: without behavioral disturbance Dementia type: unspecified type Qualified Code(s): F03.90 - Unspecified dementia without behavioral disturbance
[2021-06-08] MEDS: hydroCHLOROthiazide 25 MG TAB PO SCH (21:04)
[2021-06-08] MEDS: DORZOLAMIDE/TIMOLOL 22.3/6.8MG/ML 10 ML BTL OPB SCH (21:06)
[2021-06-09] MEDS: lisinopril 10 MG TAB PO SCH (09:40)
[2021-06-09] MEDS: HEPARIN SOD 5,000 UNIT/0.5 ML VIAL SQ SCH (09:40)
[2021-06-09] MEDS: SIMVASTATIN 20 MG TAB PO SCH (09:40)
[2021-06-09] MEDS: hydroCHLOROthiazide 25 MG TAB PO SCH (09:40)
[2021-06-09] MEDS: MEMANTINE HCL 10 MG TAB PO SCH (09:40)
[2021-06-09] MEDS: ASPIRIN 325 MG ECTAB PO SCH (09:40)
--- NOTE | 2021-06-09 12:38 | Discharge Summary ---
Date of Service June 09, 2021 Admission HPI Per Admitting Provider 89-year-old female with PMH HTN, dementia, osteoporosis, no problems to below who presents to the ED after an unwitnessed fall. Due to patient's advanced dementia, history is unobtainable from her. Patient's daughter is the bedside who provides some history. Daughter states that patient lives with her brother (patient's son). He checks in on her frequently throughout the night, when he last checked on her around 5 AM, patient remained in bed. Then around 8 AM, patient was found down in the bathroom floor. Patient cannot provide any history regarding this fall. Patient was brought to the ED for further eval uation. Patient's daughter notes a gradual decline in her mother's confusion over the past year or so. She feels it may have been worse over the past week. No other symptoms reported. In the ED, pelvis x-ray questioned a pelvic fracture however pelvis CT ruled out. Head CT and CXR negative for acute findings. Patient is hemodynamically stable. Labs show a mildly elevated total CK at 265, otherwise unremarkable. UA still pending. Patient received IVF. Admission Exam Per Admitting Provider Constitutional: WD/WN, vitals as above + ill appearing (Chronically); no acute distress Eyes: PERRL, conjunctivae normal, anicteric sclerae ENMT: Ears: no external ear abnormality Nose: no external nose abnormality Mouth: + poor dentition Respiratory: normal respiratory effort, lungs clear to auscultation Cardiovascular: Rate/Rhythm: regular rate and regular rhythm Vessels: normal peripheral pulses Extremities: no edema Gastrointestinal (Abdomen): normal bowel sounds, soft, nontender, no hepatosplenomegaly Musculoskeletal: Extremities: no cyanosis and no clubbing Difficult to assess strength as patient has difficulty following commands Skin: no rashes, warm and dry Neurologic: PERRL, EOMI, accommodation nl, no face palsy, no dysarthria Psychiatric: Orientation: alert and oriented to person; + not oriented to place and + not oriented to time Principal Diagnosis Progressive dementia with falls and safety/self-care concern requiring admission for alf placement Fall Discharge Exam GENERAL: alert, oriented to self, on RA, NAD. Ill appearing. HEENT: No pallor, no icterus. Pupils equal, round and reactive to light. Oral mucosa moist. NECK: No JVD, no neck masses. HEART: S1 and S2 heard. Regular rate and rhythm. + systolic murmur over aortic area, no gallop. RESPIRATORY SYSTEM: Normal AP diameter. No accessory muscle use. No wheezing, no crackles. ABDOMEN: Soft, bowel sounds present, nontender, no distention. CENTRAL NERVOUS SYSTEM: No facial droop. Moves extremities. EXTREMITIES: No edema, no erythema seen. Discharge Data Allergies Allergy/AdvReac Type Severity Reaction Status Date / Time No Known Allergies Allergy Unknown Verified 06/06/21 13:39 Consultations 06/06/21 15:37 ED Decision to Admit Stat Ordered Studies 06/06/21 11:09 CT head/brain wo con Stat 06/06/21 14:04 CT pelvis wo con Stat Hospital Course (1) Fall: unwitnessed fall, no apparent fracture or sequelae other than mildly elevated CK. (2) Ambulatory dysfunction: Likely related to recent fall. PT/OT for placement. (3) Dementia: #. Progressive Dementia with falls and safety/self-care concerned requiring admission for alf placement [facility] presenting from home after an unwitnessed fall In the ED, head CT negative for acute findings, pelvis x-ray initially question possible pelvic fracture however CT scan ruled out acute fracture UA negative PT/OT PT being discharged to [facility] (4) HTN (hypertension): HTN chronic, stable. Continue home meds (5) DVT prophylaxis: SQ heparin DNR/DNI Patient being discharged to SNF with following instruction at the point of discharge: Follow-up with your primary care physician within a week time. When you change position, for example while sitting up from sleeping position or standing up from sitting position, change positions very slowly to avoid any fall. Avoid fall, apply fall precaution. Take medications as prescribed. Total Time Total Time Spent Total Time Spent (In Minutes): 35 Discharge Plan Discharge Items Patient Disposition: Transfer Group Home Fac Reason For Visit: PELVIC FRACTURE Discharge Diagnosis: Progressive dementia with falls and safety/self-care concern requiring admission for alf placement Fall Activity: Resume your previous activity Non-emergency contact: Primary Care Provider Call non-emergency contact if: you have any medication questions, your symptoms worsen and your temperature is above 101 Follow-up/Referrals: Lizeth Bains [Primary Care Provider] - Diet: Regular Diet Texture: Easy to Chew Addtl Attending Provider Instructions: Follow-up with your primary care physician within a week time. When you change position, for example while sitting up from sleeping position or standing up from sitting position, change positions very slowly to avoid any fall. Avoid fall, apply fall precaution. Take medications as prescribed. Pending Studies at Discharge: No Stand-Alone Forms: [facility] Skilled Items Patient informed of condition?: Yes DNR: Yes Discharge Level of Care: Skilled Communicable Disease: No Discharge Prognosis: Stable Lines: None Urinary Catheter: No Medications and DC Order Prescriptions: Continued aspirin 325 mg Tablet 325 mg PO DAILY RF: 0 simvastatin 20 mg tablet 20 mg PO DAILY RF: 0 lisinopril 10 mg tablet 10 mg PO DAILY RF: 0 dorzolamide-timolol 22.3-6.8 mg/mL drops 1 drp OPB HS RF: 0 memantine 10 mg tablet 10 mg PO DAILY RF: 0 ibandronate 150 mg tablet 150 mg PO MONTHLY RF: 0 hydrochlorothiazide 12.5 mg tablet 12.5 mg PO UD RF: 0 donepezil 23 mg tablet 23 mg PO HS RF: 0 calcium carbonate-vitamin D3 [[place] 500 + D3] 500 mg-15 mcg (600 unit) Tablet 1 tab PO DAILY RF: 0 Discharge Orders: Discharge Order (Routine); Ordered 06/09/21 Ordered By: Figueroa De La Torre Admission Data Admit Date/Time: 06/07/21 18:00 Attending Provider: Figueroa De La Torre Admit Provider: Clarke Lane Primary Care Provider: Lizeth Bains Other Providers: Clarke Lane ; [facility]
== END 2021-06-09 13:40 | DRG 884 ==
LOC: ED 10:18 → 2W 10:18 → SUATTDRO 15:45 → 2W 18:14 → SUATTDRO 06-07 18:00
DX: I10 Essential (primary) hypertension; E78.5 Hyperlipidemia, unspecified; Z90.710 Acquired absence of both cervix and uterus; F03.90 Unspecified dementia, unspecified severity, without behavioral disturbance, psychotic disturbance, mood disturbance, and anxiety; R26.9 Unspecified abnormalities of gait and mobility; M81.0 Age-related osteoporosis without current pathological fracture; Z79.82 Long term (current) use of aspirin